=== PATIENT | female | born 1985 | race Caucasian/White ===

== ENCOUNTER 2017-05-09 18:43 | Inpatient (IN) | payer OTHER ==
[~2017-05-09] VITALS: Ht 160 cm; Wt 59.0 kg
[2017-05-09 19:48] VITALS: BP 106/65
--- NOTE | 2017-05-09 20:25 | History & Physical ---
General Information and HPI MD Statement: I have seen and personally examined MAKENZIE KRISHNAMURTHY and documented this H&P. The patient is a 31 year old female at 39 weeks and 6 days gestation who presented with a chief complaint of painful ctx. Source of Information: patient, old records Exam Limitations: no limitations History of Present Illness: The patient is a 31 year old female at 39 weeks and 6 days gestation who presented with a chief complaint of painful ctx. No LOF / vb. +FM. 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 Allergies/Medications Allergies: Coded Allergies: No Known Allergies (05/09/17) Compliance With Home Meds: GOOD Past History procurement intern History : 1 Para: 0 Last Menstrual Period: unsure Estimated Delivery Date: 05/10/17 Past procurement intern History: none Medical History Psychiatric: anxiety, depression, s/p lexapro 2011 [employer]/Reproductive: oral hsv Surgical History Pertinent Surgical History: none (schwanoma excision right thigh) Past Family/Social History Psychosocial History Smoking Status: Never Smoked Exam & Diagnostic Data Last 24 Hrs of Vital Signs/I&O Vital Signs Date Time Temp Pulse Resp B/P B/P Pulse O2 O2 Flow FiO2 Mean Ox Delivery Rate 05/09 1947 106/65 Obstetric Exam Wgt Gained During : 22 lb Pelvimetry: adequate Dilation (cm): 2 Effacement (%): 80 Station: 0 Membranes: intact Fluid: unknown Fundal Height (cm): 40 Multiple Gestation? No Contractions: q 2-6 Infant #1 - FHR Baseline: 130 Category: 1 Estimated Weight: 3200 Presentation: vtx Patient for Induction? No Physical Exam: nad rrr cta abd soft nt gravid ext nt no ed Labs Blood Type & Rh: A neg Antibody Screen: pos Hct/Hgb & Platelets #1: 14.1/ 43.5, 183 Hct/Hgb & Platelets #2: 12.5/ 38.4, 160 Rubella: imm VDRL #1: neg VDRL #2: neg HbsAg: neg HIV #1: neg HIV #2 neg 1 Hr P Group B Strep: neg Initial Ultrasound: 10/03/16 Anatomy Ultrasound: 12/17/16 nl eva Genetic Testing: combined screen wnl Last 24 Hrs of Labs/[place]: Laboratory Tests 05/09/17 1920: CBC w Diff Pending, WBC Pending, RBC Pending, Hgb Pending, Hct Pending, MCV Pending, MCH Pending, RDW Pending, Plt Count Pending, MPV Pending, PUBS MCHC Pending Assessment/Plan Assessment/Plan: 31yo P0 39+6 wks latent labor, desires pain mgmt, gbs neg, and maternal status reassuring. Rh neg s/p rhogam. -admit -stadol -expectant mgmt -if no labor progress consider pit augmentation ANSVD. As Ranked By This Provider Problem List: 1. Core Measures Venous Thromboembolism VTE Risk Factors / No Mechanical VTE Prophylaxis d/t Early Ambulation No VTE Pharm Prophylaxis d/t LowRisk-No Interven Req'd
[2017-05-09 20:45] LABS: ABSOLUTE BASOPHIL COUNT 0 /CUMM (0.0-0.2); ABSOLUTE EOSINOPHIL COUNT 0 /CUMM (0.0-0.7); ABSOLUTE GRANULOCYTE CT 5.5 /CUMM (1.4-6.5); ABSOLUTE MONOCYTE COUNT 0.3 /CUMM (0.10-0.60); BASOPHIL % 0.4 % (0.0-2.0); EOSINOPHIL % 0.4 % (0-5); GRANULOCYTE % 69.8 % (42.2-75.2); HEMATOCRIT 38.6 % (37-47); MEAN CORPUSCULAR HGB 30.1 PG (27.0-31.0); MEAN CORPUSCULAR HGB CONC 34.6 G/DL (33.0-37.0); MEAN PLATELET VOLUME 12.8 FL (7.4-10.4); PLATELET COUNT 134 /CUMM (130-400); RBC DISTRIBUTION WIDTH 12.5 % (11.5-14.5); RED BLOOD CELL CT 4.44 /CUMM (4.20-5.40); WHITE BLOOD CELL COUNT 7.9 /CUMM (4.8-10.8)
--- NOTE | 2017-05-09 21:33 | PN- OBGYN ---
Subjective Subjective: pt c/o worsening ctx. desries pain mgmt. Objective Last 24 Hrs of Vital Signs/I&O Vital Signs Date Time Temp Pulse Resp B/P B/P Pulse O2 O2 Flow FiO2 Mean Ox Delivery Rate 05/09 1947 106/65 Obstetric Exam Dilation (cm): 4 Effacement (%): 90 Station: -1 Membranes: intact Fluid: unknown Multiple Gestation? No Contractions: q 2-4 Infant #1 - FHR Baseline: 130 Category: 1 Estimated Weight: 3200 Presentation: vtx Last 24 Hrs of Labs/[place]: Laboratory Tests 05/09/171919: CBC w Diff NO MAN DIFF REQ, RBC 4.44, MCV 87.0, MCH 30.1, RDW 12.5, MPV 12.8 H, Gran % 69.8, Lymphocytes % 25.5, Monocytes % 3.9, Eosinophils % 0.4, Basophils % 0.4, Absolute Granulocytes 5.5, Absolute Lymphocytes 2.0, Absolute Monocytes 0.3 , Absolute Eosinophils 0, Absolute Basophils 0, PUBS MCHC 34.6, Urine Color YEL, Urine Clarity HAZY H, Urine pH 6.0, Ur Specific [place] 1.025, Urine Protein NEG, Urine Ketones NEG, Urine Nitrite NEG, Urine Bilirubin NEG, Urine Urobilinogen 0.2, Ur Leukocyte Esterase MOD H, Ur Microscopic SEDIMENT EXAMINED , Urine RBC 3-5, Urine WBC 10-15 H, Ur Epithelial Cells MANY H, Urine Bacteria MANY H, Urine Hemoglobin NEG, Urine Glucose NEG Assessment/Plan Assessment/Plan P0 39+6 wks early labor, gbs neg, intact, and maternal status reassuring -anesthesia for epidural -cont expectant mgmt -ansvd
--- NOTE | 2017-05-10 07:48 | PN- Obstetrical ---
Subjective Subjective: pt comfortable, intermittent rectal pressure Objective Last 24 Hrs of Vital Signs/I&O afeb, v/ss Vital Signs Date Time Temp Pulse Resp B/P B/P Pulse O2 O2 Flow FiO2 Mean Ox Delivery Rate 05/09 194 106/65 Intake & Output 05/10 0800 05/10 0000 05/09 1600 Intake Total Output Total Balance Patient 130 lb Weight Obstetric Exam Dilation (cm): 8 Effacement (%): 100 Station: -1 Membranes: AROM Fluid: clear Multiple Gestation? No Contractions: q 3-4 Infant #1 - FHR Baseline: 130 Category: 1 Estimated Weight: 3200 Presentation: vtx Current Medications: Current Medications Sig/Tobi Start time Last Medication Dose Route Stop Time Status Admin Butorphanol Tartrate 1 MG Q4P PRN 05/09 1999 AC 05/09 IV 2004 Butorphanol Tartrate 1 MG Q4P PRN 05/09 IM 2004 Ephedrine 25 MG .STK-MED ONE 05/09 2206 DC IV 05/09 220 Lactated Ringer's 1,000 ML Q8H 05/09 1999 AC 05/09 IV 2352 Oxytocin 30 UNITS PER PROTOCL 05/10 0015 AC Lactated Ringer's 500 ML IV Assessment/Plan Assessment/Plan P0 40wks protracted active labor, s/p AROM, gbs neg, and maternal status reassuring -cont current mgmt -ANSVD
--- NOTE | 2017-05-10 12:11 | Labor & Delivery Summary ---
Delivery Summary Vaginal Delivery: Vaginal: vertex Episiotomy/Lacerations: Episiotomy/Lacerations: 4th degree Type: Extended to 4th degree laceration Repair: The rectal mucose was reapproximated in 2 layers with 3-0 polysorb the first simple running the second imbricating taking care not to enter the rectal mucosa. The rectal sheeths were reapproximated with 4 0-polysorb figure of 8 sutures at 12 oclock 6 oclock anterior and posterior. the rest of the repair was acomplished in the usual fashon with 3-0 polysorb. good sphincter tone noted at end of procedure with no sutures into mucosa. Anesthesia: block Placenta: Placenta: spontanteous, normal, 3 vessel Anesthesia: block Baby's Weight: 7 # 0 OZ Apgars - 1 Min: 9 Apgars - 5 Min: 9 Additional Comments: SEE 4TH DEGREE REPAIR NOTE GOOD HEMOSTASIS WITH IV PITOCIN
--- NOTE | 2017-05-11 08:27 | PN- Post Delivery/GYN ---
Subjective Subjective: feeling well just sore all over Review of Systems Constitutional: Reports: malaise. Denies: chills, fever. EENTM: Denies: blurred vision, double vision, visual changes. Cardiovascular: Denies: chest pain, edema. Respiratory: Denies: cough. Gastrointestinal: Denies: diarrhea, nausea, vomiting. Neurological/Psychological: Denies: anxiety, depressed. Objective Last 24 Hrs of Vital Signs/I&O vss Physical Exam General Appearance Alert, Oriented X3, Cooperative, No Acute Distress Cardiovascular Regular Rate Lungs Clear to Auscultation Abdomen Soft, No Tenderness, fundus firm Neurological Normal Gait, Normal Speech Extremities No Edema Pelvic (FEMALE) lochia sanganous Current Medications: Current Medications Sig/Tobi Start time Last Medication Dose Route Stop Time Status Admin Acetaminophen 650 MG Q4P PRN 05/10 121 AC PO Bupivacaine HCl 10 ML .STK-MED ONE 05/10 0910 DC EPID 05/10 0911 Butorphanol Tartrate 1 MG Q4P PRN 05/09 1999 DC 05/09 IV 2004 Butorphanol Tartrate 1 MG Q4P PRN 05/09 1999 DC 05/09 IM 2004 Docusate Sodium 100 MG BID PRN 05/10 1215 AC 05/10 PO 2201 Hydroxyzine HCl 50 MG AT BEDTIME NEED.. 05/10 121 AC PO Ibuprofen 800 MG Q6P PRN 05/10 1215 AC 05/11 PO 0053 Ketorolac 30 MG ONCE ONE 05/10 1215 DC 05/10 Tromethamine IV 05/10 1216 1138 Lactated Ringer's 1,000 ML Q8H 05/09 1999 DC 05/09 IV 2352 Magnesium Hydroxide 30 ML DAILY PRN 05/10 1215 AC PO Oxycodone/ 1 TAB Q3P PRN 05/10 1215 AC 05/11 Acetaminophen PO 0058 Oxytocin 20 UNITS Q5H 05/10 1215 DC 05/10 Lactated Ringer's 1,000 ML IV 05/10 1714 1133 Oxytocin 30 UNITS PER PROTOCL 05/10 0015 DC Lactated Ringer's 500 ML IV Senna 374 MG AT BEDTIME NEED.. 05/10 1215 AC PO Last 24 Hrs of Labs/[place]: Laboratory Tests 05/11/17 0640: Kleihauer Cells Pending 05/10/17 1204: Kleihauer Cells Cancelled Assessment/Plan Assessment/Plan ppd #1 vss afebrile 4degree laceration no bm yet continue on colase Problem List: 1. Fourth degree laceration of perineum, delivered, current hospitalization Attending MD Review Statement Attending Statement Attending MD Statement: examined this patient, discussed with family, discussed with nursing
[2017-05-11 11:28] LABS: ABSOLUTE BASOPHIL COUNT 0 /CUMM (0.0-0.2); ABSOLUTE EOSINOPHIL COUNT 0.1 /CUMM (0.0-0.7); ABSOLUTE GRANULOCYTE CT 8.7 /CUMM (1.4-6.5); ABSOLUTE LYMPH COUNT 1.9 /CUMM (1.2-3.4); ABSOLUTE MONOCYTE COUNT 0.4 /CUMM (0.10-0.60); BASOPHIL % 0.3 % (0.0-2.0); EOSINOPHIL % 1.2 % (0-5); MEAN CORPUSCULAR HGB 29.9 PG (27.0-31.0); MEAN CORPUSCULAR HGB CONC 33.7 G/DL (33.0-37.0); MEAN CORPUSCULAR VOLUME 88.7 FL (81.0-99.0); MEAN PLATELET VOLUME 13.1 FL (7.4-10.4); PLATELET COUNT 103 /CUMM (130-400); RBC DISTRIBUTION WIDTH 12.9 % (11.5-14.5); RED BLOOD CELL CT 3.44 /CUMM (4.20-5.40); WHITE BLOOD CELL COUNT 11.1 /CUMM (4.8-10.8)
[2017-05-11 11:34] LABS: HEMATOCRIT 30.5 % (37-47)
[2017-05-12] MEDS ORDERED: IBUPROFEN800 M1 PO (09:06)
[2017-05-12] MEDS ORDERED: DOCUSATE SODIU100 M3 PO (09:06)
--- NOTE | 2017-05-12 09:07 | PN- OBGYN ---
Surgical Brief Attending Note Brief Attending Note: PPD#2 pt is doing well, c/o overall sore , tolerate diet, void without difficulties, +BM, ambulating well. PE: VSS General: NAD Abdomen: soft, nontender, uterus firm , fundus below umbilicus. lochia mild perineum: slight edema, laceration repair site intact. Ext: DCT (-) A/P: 31 yo, s/p , 4th degree laceration. PPD #2 1. encourage ambualtion and 2. encourage fluid intake, fiber diet, colace BID daily due to 4th degree laceration 3. RT PP care 4. will d/c home, f/u in office in 2wks and 6 wks, discahrge instructions given.
== END 2017-05-12 12:10 | DRG 775 ==
LOC: GNO 18:43
PROVIDERS: Obstetrics & Gynecology
PROC: 10E0XZZ Delivery of Products of Conception, External Approach (ICD-10-PCS; principal; 2017-05-10)
PROC: 3E033VJ Introduction of Other Hormone into Peripheral Vein, Percutaneous Approach (ICD-10-PCS; 2017-05-10)
PROC: 0DQP0ZZ Repair Rectum, Open Approach (ICD-10-PCS; 2017-05-10)
DX: O70.3 Fourth degree perineal laceration during delivery (principal); Z37.0 Single live birth; Z3A.40 40 weeks gestation of pregnancy
CPT/HCPCS: GNOP; GNOS; 36415; 81001; 86920; 86922; J0595; J1885; J2405; J2790; J7120